=== PATIENT | male | born 1970 | race Two or more races ===

== ENCOUNTER → 2017-09-13 | Day surgery (SDC) | payer BC ==
[~2017-09-13] VITALS: Ht 167.6 cm; Wt 102.4 kg
[~2017-09-13] MED LIST: CHLORHEXIDINE GLUCONATE 2 % 1 PACK (2 CLOTHS) TOPICAL PRN; DO NOT ADM ANY ANTICOAGULANT DRUGS PRN; INSULIN HUMAN REGULAR 1,000 UNITS/10 ML VIAL SQ PRN; LACTATED RINGER'S 1000 ML IV PRN; LIDOCAINE HCL 1% PF 5 ML SYRINGE OTHER ONE; METOPROLOL TARTRATE 25 MG TAB PO PRN; MIDAZOLAM HCL 2 MG/2 ML VIAL ONE; MORPHINE SULFATE 2 MG/ML SYRINGE IV PRN; ONDANSETRON HCL 4 MG/2 ML VIAL IV ONE; ONDANSETRON HCL 4 MG/2 ML VIAL IV PUSH PRN; POVIDONE IODINE 5% (ANTISEPSIS KIT) 4 APPLICATIONS EACH NARE PRN; PROPOFOL 200 MG/20 ML AMP IV ONE; SODIUM CHLORID 0.9% 500 ML IV PRN; ceFAZolin 1,000 MG/NS 100 ML IV SCH; oxyCODONE/ACETAMINOPHEN 5 MG/325 MG TAB PO PRN
--- NOTE | 2017-09-13 08:36 | RADRPT ---
EXAM DATE/TIME: 09/13/2017 08:07 [place] COMPARISON: No previous studies available for comparison. INDICATIONS : Right ESWL today. MEDICAL HISTORY : None. SURGICAL HISTORY : None. ENCOUNTER: Initial ACUITY: 1 day PAIN SCORE: 0/10 LOCATION: Right abdomen. FINDINGS: There are 2 calcified densities projecting in the mid to lower pole of the right kidney measuring 5 m m and 9 mm. There is also a 7 mm calcified density projecting over the mid left kidney. Several calci fications in the pelvis are likely phleboliths. No dilated loops of bowel are noted. No gross free ai r or pneumatosis. Osseous structures are intact. CONCLUSION: 1. Calcified renal calculi measuring 5 mm and 9 mm in the mid to lower pole of the right kidney. 2. 7 mm calcified calculus in the mid left kidney. Christophe Delgado MD on September 13, 2017 at 8:31 Board Certified Radiologist. This report was verified electronically.
[2017-09-13 08:46] LABS: AUTOMATED NEUTROPHIL # 3.8 TH/MM3 (1.8-7.7); BASOPHIL # 0.1 TH/MM3 (0-0.2); BASOPHIL % 0.8 % (0.0-2.0); EOSINOPHIL # 0.2 TH/MM3 (0-0.4); EOSINOPHIL % 2.6 % (0.0-4.0); HEMATOCRIT 42.7 % (39.0-51.0); HEMOGLOBIN 14.7 GM/DL (13.0-17.0); LYMPH % 31.4 % (9.0-44.0); LYMPHOCYTE # 2.1 TH/MM3 (1.0-4.8); MEAN CORPUSCULAR HEMOGLOBIN 29.6 PG (27.0-34.0); MEAN CORPUSCULAR HGB CONC 34.4 % (32.0-36.0); MEAN PLATELET VOLUME 8.3 FL (7.0-11.0); MONO % 9.6 % (0.0-8.0); MONOCYTE # 0.7 TH/MM3 (0-0.9); NEUT % 55.6 % (16.0-70.0); PLATELET COUNT 255 TH/MM3 (150-450); RED BLOOD COUNT 4.96 MIL/MM3 (4.50-5.90); RED CELL DISTRIBUTION WIDTH 13.8 % (11.6-17.2); WHITE BLOOD COUNT 6.8 TH/MM3 (4.0-11.0)
--- NOTE | 2017-09-13 10:49 | PD.OP ---
Operative Report Date of Surgery: Sep 13, 2017 Preoperative Diagnosis: Right renal calculi Postoperative Diagnosis: Same Procedure: Right extracorporeal shockwave lithotripsy Anesthesia: General LMA Surgeon: Gilbert Mcneill Traffic Ii Manager(s): None Resident Surgeon: None Operation and Findings: 46-year-old male presented with findings of bilateral renal calculi. Patient had a 9 mm stone located in the mid right pole and a 6-7 mm stone in the upper pole. Patient also with stones on the left side. He elected to undergo right extracorporeal shockwave lithotripsy. Risk and benefits were discussed preoperatively and he was willing to proceed. The patient was brought to the operating room and identified by myself as Nathanael Kushal. He was placed on the operating room table in the supine position. Under fluoroscopic imaging guidance the stone was visualized. The patient received preprocedure antibiotics as well as general LMA anesthesia. Right extracorporeal shockwave lithotripsy commenced with the patient receiving a total of 2000 shocks to the right midpole stone. Good fragmentation of this large stone was noted under fluoroscopic imaging guidance. He tolerated the procedure well. He will require repeat surgery right extracorporeal shockwave lithotripsy in the future as well as treatment of his left renal stones. Patient will follow-up in the office in a few weeks and obtain a KUB x-ray prior. Determination at that time will be made as to which side to proceed with treatment. Gilbert Mcneill DO Sep 13, 2017 10:49
[2017-09-13 12:02] VITALS: BP 111/83; PULSE 67; RESP 20; TEMP 97.9; O2SAT 99
== END | disposition home or self-care (01) ==
LOC: HSDC 07:22
PROVIDERS: ATTEND Urology
DX: N20.0 Calculus of kidney (principal)
CPT/HCPCS: 00873; 50590; 74018; 85025; J2250; J2405; J7120